=== PATIENT | male | born 1980 | race Caucasian/White ===

== ENCOUNTER 2016-11-29 09:59 | Emergency (ER) | payer OTHER ==
[2016-11-29 10:06] VITALS: BP 110/69; PULSE 75; RESP 16; TEMP 98.1; O2SAT 100
--- NOTE | 2016-11-29 10:50 | C.PDOC ---
History Of Present Illness 36 year old male presents to the ED with complaints of left foot pain that radiates to left calf and his back. Patient states that the pain started at approximately 21:00 when he was lying down in his sofa and tried to stand up when he felt a sudden pain in his left foot. Patient has not taken any medicine for his pain, but states he applied bengay to the area without relief. Patient notes he works for the [employer] and his job requires frequent walking around. Patient states he walked to the ED. Patient denies any numbness, weakness, tingling, or any falls/injuries or recent trauma. Time Seen by Provider: 11/29/16 10:14 Chief Complaint (Nursing): Lower Extremity Problem/Injury History Per: Patient History/Exam Limitations: no limitations Onset/Duration Of Symptoms: Hrs Current Symptoms Are (Timing): Still Present Recent travel outside of the [place] States: No Additional History Per: Patient - Ankle/Foot Description Of Injury: denies: Fell Alleviating Factor(s): Other (Bengay ointment) Past Medical History Reviewed: Historical Data, Nursing Documentation, Vital Signs Vital Signs: Last Vital Signs Temp 98.1 F 11/29/16 10:03 Pulse 75 11/29/16 10:03 Resp 16 11/29/16 10:03 BP 110/69 11/29/16 10:03 Pulse Ox 100 11/29/16 13:18 - Medical History PMH: No Chronic Diseases Surgical History: No Surg Hx Family History: States: Unknown Family Hx - Social History Hx Alcohol Use: No Hx Substance Use: No - Immunization History Hx Influenza Vaccination: No Review Of Systems Constitutional: Negative for: Weakness Musculoskeletal: Positive for: Back Pain (Left lower back), Leg Pain (Left calf) , Foot Pain (Left, dorsal aspect) Neurological: Negative for: Weakness, Numbness Physical Exam - Physical Exam Appears: Non-toxic, No Acute Distress Skin: Normal Color, Warm, Dry, No Ecchymosis Eye(s): bilateral: Normal Inspection Back: Normal Inspection, No Straight Leg Raising Extremity: Normal ROM (left hip, knee, ankle and digits ), No Tenderness, No Calf Tenderness, Capillary Refill (less than 2 seconds ), No Deformity, No Swelling Extremity: Bilateral: Other (popliteal pulses 2+) Pulses: Left Dorsalis Pedis: Normal, Right Dorsalis Pedis: Normal Neurological/Psych: Oriented x3, Normal Speech, Normal Cognition Gait: Steady ED Course And Treatment O2 Sat by Pulse Oximetry: 100 (Room air) Pulse Ox Interpretation: Normal Medical Decision Making Medical Decision Making: Impression: 36 y/o male with left foot pain Plan: * Toradol IM * Left foot XR * reassess and disposition Progress: Toradol IM administered. Left foot XR ordered. Left foot three views History: Pain. Comparison: None available. Findings: Mild hallux valgus deformity. Punctate radiopaque density seen within the medial soft tissues at the level of the mid left 3rd metatarsal bone. No evidence of acute displaced fracture or dislocation. Mild bony productive change at the dorsal aspect of the anterior talus near the articulation with the navicular bone. Question mild soft tissue swelling at the lateral aspect of the 5th MTP joint space. Impression: Mild hallux valgus deformity. Degenerative changes. If pain persists, consider MRI. Disposition - Disposition Disposition: HOME/ ROUTINE Disposition Time: 11:47 Condition: STABLE Prescriptions: Ibuprofen [Motrin] 600 mg PO Q6 #25 tab Instructions: Foot Contusion (ED) Forms: [facility] (Faroese), Work Excuse - Clinical Impression Clinical Impression: Foot pain - Scribe Statement The provider has reviewed the documentation as recorded by the Scribe Nadeem Varela All medical record entries made by the Scribe were at my direction and personally dictated by me. I have reviewed the chart and agree that the record accurately reflects my personal performance of the history, physical exam, medical decision making, and the department course for this patient. I have also personally directed, reviewed, and agree with the discharge instructions and disposition.
--- NOTE | 2016-11-29 14:06 | RAD ---
Left foot three views History: Pain. Comparison: None available. Findings: Mild hallux valgus deformity. Punctate radiopaque density seen within the medial soft tissues at the level of the mid left 3rd metatarsal bone. No evidence of acute displaced fracture or dislocation. Mild bony productive change at the dorsal aspect of the anterior talus near the articulation with the navicular bone. Question mild soft tissue swelling at the lateral aspect of the 5th MTP joint space. Impression: Mild hallux valgus deformity. Degenerative changes. If pain persists, consider MRI.
== END 2016-11-29 12:00 | disposition home or self-care (01) ==
LOC: C.ER 09:59
DX: M79.672 Pain in left foot (principal)
CPT/HCPCS: 73630; 96372; 99283; J1885

== ENCOUNTER 2017-09-28 19:46 | Observation (INO) | payer OTHER ==
[2017-09-28] MEDS ORDERED: Sodium Chloride 0.9% 1,000 ML IV ONE ×2 (20:23→21:17)
--- NOTE | 2017-09-28 20:23 | C.PDOC ---
History Of Present Illness 37 year old male with a history of kidney stones presents to the emergency department with complaints of left flank pain with a sudden onset a few hours ago. Patient describes the pain as sharp and stabbing, with a severity of 6/10. Time Seen by Provider: 09/28/17 20:22 Chief Complaint (Nursing): Male Genitourinary History Per: Patient History/Exam Limitations: no limitations Onset/Duration Of Symptoms: Hrs Current Symptoms Are (Timing): Still Present Severity: Moderate Pain Scale Rating Of: 6 Quality Of Discomfort: Sharp, Stabbing, "Pain" Past Medical History Reviewed: Historical Data, Nursing Documentation, Vital Signs Vital Signs: Last Vital Signs Temp 97.8 F 09/28/17 20:04 Pulse 94 H 09/28/17 20:04 Resp 20 09/28/17 20:04 BP 118/61 09/28/17 20:04 Pulse Ox 98 09/28/17 21:22 - Medical History PMH: Kidney Stones Surgical History: No Surg Hx Family History: States: No Known Family Hx - Social History Hx Alcohol Use: No Hx Substance Use: No - Immunization History Hx Influenza Vaccination: No Review Of Systems Musculoskeletal: Positive for: Back Pain (left flank) Physical Exam - Physical Exam Appears: Non-toxic, No Acute Distress Skin: Warm, Dry Head: Normacephalic Eye(s): bilateral: Normal Inspection Oral Mucosa: Moist Neck: Trachea Midline, Supple Chest: Symmetrical, No Tenderness Cardiovascular: Rhythm Regular, No Murmur Respiratory: No Rales, No Rhonchi, No Wheezing Gastrointestinal/Abdominal: Soft, No Tenderness, No Guarding, No Rebound Back: Paraspinal Tenderness (left flank) Neurological/Psych: Oriented x3 ED Course And Treatment - Laboratory Results Result Diagrams: 09/28/17 20:20 09/28/17 20:20 O2 Sat by Pulse Oximetry: 98 (RA) Pulse Ox Interpretation: Normal Progress Note: Plan: CT Abdomen and Pelvis. CMP. Lipase. CBC. Morphine IVP. Pepcid 20mg IVP. NaCl IV Fluids. Toradol 30mg IVP. Zofran 4mg IVP. Urinalysis Reevaluation Time: 00:30 Reassessment Condition: Improved Disposition Counseled Patient/Family Regarding: Studies Performed, Diagnosis, Need For Followup, Rx Given - Disposition Referrals: Justina Garcia MD [Staff Provider] - Darrel Ziegler MD [Staff Provider] - Disposition: HOME/ ROUTINE Disposition Time: 20:23 Condition: FAIR Additional Instructions: Please also follow up with a urologist Prescriptions: Ibuprofen [Motrin Tab] 800 mg PO TID PRN #15 tab PRN Reason: Pain, Moderate (4-7) Ondansetron ODT [Zofran ODT] 4 mg PO TID PRN #10 odt PRN Reason: Nausea/Vomiting Tamsulosin [Flomax] 0.4 mg PO DAILY #15 cap Instructions: Kidney Stones (DC), Renal Colic (DC), How to Strain Your Urine Forms: [employer] (Slovenian) - Clinical Impression Clinical Impression: Renal colic on left side, Kidney stone on left side - Scribe Statement The provider has reviewed the documentation as recorded by the Scribe (Caleb Canas) Provider Attestation: All medical record entries made by the Scribe were at my direction and personally dictated by me. I have reviewed the chart and agree that the record accurately reflects my personal performance of the history, physical exam, medical decision making, and the department course for this patient. I have also personally directed, reviewed, and agree with the discharge instructions and disposition.
[2017-09-28 20:24] LABS: BASO # 0.1 K/uL (0.0-0.2); BASO % 0.9 % (0.0-2.0); EOS # 0.8 K/uL (0.0-0.7); EOS % 8.6 % (0.0-4.0); HEMOGLOBIN 13.4 g/dL (12.0-18.0); LYMPH # 3.2 K/uL (1.0-4.3); LYMPH % 36.7 % (20.0-40.0); MEAN CELL VOLUME 82.8 fL (80.0-94.0); MEAN CORPUSCULAR HEMOGLOBIN 27.8 pg (27.0-31.0); MEAN CORPUSCULAR HGB CONC 33.6 g/dL (33.0-37.0); MEAN PLATELET VOLUME 9.4 fL (7.2-11.7); MONO # 0.7 K/uL (0.0-0.8); NEUT % 45.8 % (50.0-75.0); NRBC % 0.5 % (0.0-2.0); RBC 4.83 Mil/uL (4.40-5.90); RED CELL DISTRIBUTION WIDTH 13.1 % (11.5-14.5); WHITE BLOOD COUNT 8.8 K/uL (4.8-10.8)
[2017-09-28 20:40] LABS: ALB/GLOB RATIO 1.7 (1.0-2.1)
[2017-09-28 20:45] LABS: ALBUMIN 4.6 g/dL (3.5-5.0); ALT/SGPT 28 U/L (21-72); AST/SGOT 19 U/L (17-59); BLOOD UREA NITROGEN 16 mg/dL (9-20); CALCIUM 9.8 mg/dl (8.6-10.4); GFR AFRICAN-AMERICAN > 60; GFR NON-AFRICAN AMERICAN > 60
[2017-09-28 21:27] LABS: SQUAMOUS EPITHIAL < 1 /hpf (0-5); URINE BACTERIA RARE (<OCC); URINE BILIRUBIN NEGATIVE (NEGATIVE); URINE BLOOD 3+ (NEGATIVE); URINE CLARITY Clear (Clear); URINE COLOR Yellow (YELLOW); URINE GLUCOSE (UA) NORMAL (Normal); URINE LEUKOCYTE ESTERASE NEG Leu/uL (Negative); URINE PROTEIN NEGATIVE (NEGATIVE); URINE UROBILINOGEN NORMAL mg/dL (0.2-1.0)
[2017-09-28] MEDS ORDERED: Morphine 4 MG/ML VIAL ONE (21:43)
[2017-09-28] MEDS ORDERED: Sodium Chloride 0.9% 1,000 ML ONE (21:43)
[2017-09-29] MEDS ORDERED: Sodium Chloride 0.9% 500 ML IV ONE (00:37)
[2017-09-29] MEDS ORDERED: Sodium Chloride 0.9% 1,000 ML ONE (00:51)
[2017-09-29] MEDS ORDERED: Morphine 4 MG/ML VIAL ONE (00:51)
[2017-09-29] MEDS ORDERED: HYDROmorphone 1 mg/ml ISec IVP STA (02:03)
[2017-09-29] MEDS ORDERED: SODIUM CHLORIDE 0.9% IV ONE ×2 (02:22→02:30)
[2017-09-29] MEDS ORDERED: LIDOCAINE IV ONE ×2 (02:22→02:30)
[2017-09-29] MEDS ORDERED: Oxycodone/Acetaminophen 5/325 mg Tab PO PRN (07:10)
--- NOTE | 2017-09-29 07:23 | CP.PCM.HP ---
History of Present Illness - History of Present Illness History of Present Illness: 37 M with no PMH came to the hospital with c/o left flank pain started about 7 pm last night. Patient in Er found to have left ureteric distal calculus 3-4 mm with proximal hydronephosis. Patient in ER given 3 lit of fluid bolus, multiple doses of iv morphine, lidocaine IV, toradol iv, but still in pain, hence being admitted for pain control. PMH none Surgery left arm Allergies NKDA Family history not contributory Social history denies alcohol, smoking, illicit drugs Meds none Present on Admission - Present on Admission Any Indicators Present on Admission: No Review of Systems - Review of Systems All systems: reviewed and no additional remarkable complaints except (HPI) Past Patient History - Past Social History Smoking Status: Never Smoked Alcohol: None Drugs: Denies Home Situation {Lives}: With Family Domestic Violence: Negative - RENAL Hx Kidney Stones: Yes - PSYCHIATRIC Hx Substance Use: No - SURGICAL HISTORY Hx Surgeries: Yes Hx Orthopedic Surgery: Yes (LT ARM SX) - ANESTHESIA Hx Anesthesia: Yes Hx Anesthesia Reactions: No Meds Home Medications: Home Medication List Medication Instructions Recorded Confirmed Type Ibuprofen [Motrin Tab] 800 mg PO TID PRN #15 tab 09/29/17 Rx Ondansetron ODT [Zofran ODT] 4 mg PO TID PRN #10 odt 09/29/17 Rx Tamsulosin [Flomax] 0.4 mg PO DAILY #15 cap 09/29/17 Rx Allergies/Adverse Reactions: Allergies Allergy/AdvReac Type Severity Reaction Status Date / Time No Known Allergies Allergy Verified 11/29/16 10:02 Physical Exam - Additional Findings Additional findings: * HEENT SHEYLA * Neck supple * Chest Clear * CVS Regular, no gallop or rub * PA soft, mild tenderness in left flank, no cva tenderness. * Ext no edema * [employer] awake alert oriented x3, no fnd. * Skin turgor normal. Results - Vital Signs Recent Vital Signs: Last Vital Signs Temp 98.9 F 09/29/17 06:49 Pulse 80 09/29/17 06:49 Resp 16 09/29/17 06:49 BP 110/63 09/29/17 06:49 Pulse Ox 99 09/29/17 06:49 - Labs Result Diagrams: 09/28/17 20:20 08/10/18 20:20 Labs: Laboratory Results - last 24 hr 09/28/17 09/28/17 09/28/17 19:45 20:20 20:20 WBC 8.8 RBC 4.83 Hgb 13.4 Hct 39.9 MCV 82.8 MCH 27.8 MCHC 33.6 RDW 13.1 Plt Count 211 MPV 9.4 Neut % (Auto) 45.8 L Lymph % (Auto) 36.7 Saunders % (Auto) 8.0 Eos % (Auto) 8.6 H Baso % (Auto) 0.9 Neut # (Auto) 4.0 Lymph # (Auto) 3.2 Saunders # (Auto) 0.7 Eos # (Auto) 0.8 H Baso # (Auto) 0.1 Sodium 140 Potassium 4.0 Chloride 100 Carbon Dioxide 28 Anion Gap 16 BUN 16 Creatinine 0.8 Est GFR ( Amer) > 60 Est GFR (Non-Af Amer) > 60 Random Glucose 162 H Calcium 9.8 Total Bilirubin 0.4 AST 19 ALT 28 Alkaline Phosphatase 52 Total Protein 7.3 Albumin 4.6 Globulin 2.7 Albumin/Globulin Ratio 1.7 Lipase 73 Urine Color Urine Clarity Urine pH Ur Specific [place] Urine Protein Urine Glucose (UA) Urine Ketones Urine Blood Urine Nitrate Urine Bilirubin Urine Urobilinogen Ur Leukocyte Esterase Urine WBC (Auto) Urine RBC (Auto) Ur Squamous Epith Cells Urine Bacteria 09/28/17 21:15 WBC RBC Hgb Hct MCV MCH MCHC RDW Plt Count MPV Neut % (Auto) Lymph % (Auto) Saunders % (Auto) Eos % (Auto) Baso % (Auto) Neut # (Auto) Lymph # (Auto) Saunders # (Auto) Eos # (Auto) Baso # (Auto) Sodium Potassium Chloride Carbon Dioxide Anion Gap BUN Creatinine Est GFR ( Amer) Est GFR (Non-Af Amer) Random Glucose Calcium Total Bilirubin AST ALT Alkaline Phosphatase Total Protein Albumin Globulin Albumin/Globulin Ratio Lipase Urine Color Yellow Urine Clarity Clear Urine pH 6.0 Ur Specific [place] 1.019 Urine Protein Negative Urine Glucose (UA) Normal Urine Ketones Negative Urine Blood 3+ H Urine Nitrate Negative Urine Bilirubin Negative Urine Urobilinogen Normal Ur Leukocyte Esterase Neg Urine WBC (Auto) 1 Urine RBC (Auto) 34 H Ur Squamous Epith Cells < 1 Urine Bacteria Rare Assessment & Plan - Assessment and Plan (Free Text) Assessment: * Ureteric colic with distal 3x4mm left calculus, with hydro Plan: * Pain control * Gi prophylaxis * IVF * flomax * Strain urine * Counselled about avoiding dehydration * See orders for detail.
[2017-09-29] MEDS: Lactated Ringer's 1,000 ML IV SCH ×4 (07:50→21:55)
[2017-09-29] MEDS: Pantoprazole 40 mg EC Tab PO SCH (09:11)
--- NOTE | 2017-09-29 17:00 | CT ---
Date of service: 09/28/2017 PROCEDURE: CT Abdomen and Pelvis without intravenous contrast HISTORY: Left-sided flank pain in a patient with history of kidney stones COMPARISON: No prior study available for comparison TECHNIQUE: Contiguous helical/transaxial sections of the abdomen pelvis performed without oral or intravenous contrast material. Additional 2D sagittal and coronal reformats generated. Radiation dose: Total exam DLP = 249.76 mGy-cm. This CT exam was performed using one or more of the following dose reduction techniques: Automated exposure control, adjustment of the mA and/or kV according to patient size, and/or use of iterative reconstruction technique. FINDINGS: LOWER THORAX: Mild passive/dependent type atelectasis both posterior lower lung andrews. No focal consolidation or effusion. Heart size within range of normal. No significant pericardial effusion. Small hiatal hernia. LIVER: Liver is mildly enlarged measuring nearly 19 cm in CC dimension. No obvious hepatic mass or collection seen on images presented. GALLBLADDER AND BILE DUCTS: Gallbladder physiologically distended. No evidence of intraluminal gallbladder calculi. PANCREAS: Unremarkable. No gross lesion or ductal dilatation. SPLEEN: Spleen exhibits normal size and attenuation pattern without mass collection or calcification. ADRENALS: There are no adrenal lesions. . KIDNEYS AND URETERS: There is moderate left-sided hydronephrosis secondary to a distal left ureteral calculus that measures approximately 4.2 mm. VASCULATURE: No evidence of abdominal aortic or iliac artery aneurysm. BOWEL: Evaluation of the bowel is somewhat limited due to the lack of oral contrast material. Stomach is partially distended with food debris liquid and air. Visualized loops of small bowel exhibit normal contour and caliber. No evidence of acute mechanical small bowel obstruction. Moderate amount of stool seen within the cecum and ascending colon to a lesser degree remaining colon suggesting mild fecal retention/constipation. APPENDIX: Normal-appearing appendix PERITONEUM: Unremarkable. No free fluid. No free air. LYMPH NODES: Unremarkable. No enlarged lymph nodes. BLADDER: Urinary bladder is physiologically distended. No evidence of intraluminal urinary bladder calculi. REPRODUCTIVE: Unremarkable. BONES: Minor multilevel degenerative spondylosis of the lumbar spine. There is also straightening of the normal lumbar lordosis. There are no acute compression fractures nor retropulsed fragments. OTHER FINDINGS: None. IMPRESSION: There is an obstructing approximately 4.2 mm calculus distal left ureter with moderate left-sided hydronephrosis.
[2017-09-30] MEDS: Morphine 4 MG/ML VIAL IV PRN ×2 (00:03→05:51)
[2017-09-30] MEDS: Lactated Ringer's 1,000 ML IV SCH ×3 (04:18→08:27)
[2017-09-30] MEDS ORDERED: Oxycodone/Acetaminophen 5/325 mg Tab PO PRN (06:32)
[2017-09-30 07:59] LABS: BASO % 0.2 % (0.0-2.0); EOS # 0.3 K/uL (0.0-0.7); EOS % 3.7 % (0.0-4.0); LYMPH # 1.4 K/uL (1.0-4.3); LYMPH % 17.7 % (20.0-40.0); MEAN CELL VOLUME 83.1 fL (80.0-94.0); MEAN CORPUSCULAR HEMOGLOBIN 27.8 pg (27.0-31.0); MEAN CORPUSCULAR HGB CONC 33.4 g/dL (33.0-37.0); MEAN PLATELET VOLUME 10.2 fL (7.2-11.7); MONO # 0.9 K/uL (0.0-0.8); MONO % 10.8 % (0.0-10.0); NEUT # 5.5 K/uL (1.8-7.0); NEUT % 67.6 % (50.0-75.0); RBC 4.33 Mil/uL (4.40-5.90); RED CELL DISTRIBUTION WIDTH 12.9 % (11.5-14.5); WHITE BLOOD COUNT 8.1 K/uL (4.8-10.8)
[2017-09-30 08:04] LABS: INR 1.1; PROTHROMBIN TIME 12.5 SECONDS (9.7-12.2)
[2017-09-30 08:09] LABS: BLOOD UREA NITROGEN 8 mg/dL (9-20); GFR AFRICAN-AMERICAN > 60; GFR NON-AFRICAN AMERICAN > 60
[2017-09-30 08:10] LABS: ALB/GLOB RATIO 1.3 (1.0-2.1); ALBUMIN 3.4 g/dL (3.5-5.0); ALT/SGPT 25 U/L (21-72); AST/SGOT 13 U/L (17-59); CALCIUM 8.5 mg/dl (8.6-10.4)
--- NOTE | 2017-09-30 08:51 | CP.PCM.PN ---
Subjective - Date & Time of Evaluation Date of Evaluation: 09/30/17 Time of Evaluation: 08:30 - Subjective Subjective: Hospitalist Progress Note Patient was seen and examined at 8:30 AM 09/30/17 [address] 37 year old male (with no significant past medical history) was admitted on 09/29/17 for evaluation of left flank pain that had started around 7 PM on night of 09/28/17. CT Abdomen/Pelvis revealed a 4.2 mm calcululs in distal left ureter with moderate left sided hydronephrosis. He is planned with cystoscopy later today for 10 AM. Currently upon FULL ROS: Left flank pain was particularly bad this morning requiring him to request pain medication. Currently he is comfortable. Last bowel movement was normal on Sunday morning NO pain with urination and urine is clear water color NO n/v and tolerated his meals yesterday. He is hungry this morning (currently NPO for cytoscopy) NO abdominal pain NO chest pain NO cough/dypsnea/sob/cough NO other complaints upon FULL ROS Exam: General: AAOX3, NAD HEENT: NCA, EOMI, PERRLA, NO cervical/supraclavicular/submandibular lymphadenopathy, NO pharyngeal erythema/exudate, Nasal Turbinates are nonerythematous/nonedematous, Oral Mucosa is moist Cardio: NS1 and NS2, NO M/R/G Resp: CTA B/L, NO R/R/W GI: BSx4, Soft, NT, NO HSM, NO guarding/rebound tenderness Ext: Pulses are strong and equal, Capillary Refill is 2 seconds, NO edema Neuro: CN II through XII are grossly intact Assessments: 1). Left Ureter 4.2 mm calcululs in distal left ureter with moderate left sided hydronephrosis. NPO For cytoscopy with Urology Dr. Wells Patient has been straining all urine since admission and has not noticed any stone passing LR @ 200 ml/hr Morphine 0.5 mg IV Q6H PRN Moderate Morphine 1 mg IV Q6H PRN Severe Pain Zofran 4 mg IV Q6H PRN N/V NO antibiotics at this time as there is NO evidence of pyelonephritis on CT and UA does not show any evidence of infection Disposition: If cleared by Urology Dr. Ziegler after cystoscopy will discharge to home Kee Garcia D.O. Objective - Vital Signs/Intake and Output Vital Signs (last 24 hours): Temp Pulse Resp BP Pulse Ox 97.5 F L 67 20 117/67 97 09/30/17 05:54 09/30/17 05:54 09/30/17 05:54 09/30/17 05:54 09/30/17 05:54 Intake and Output: 09/30/17 09/30/17 06:59 18:59 Intake Total 1625 Balance 1625 - Medications Medications: Current Medications Lactated Ringer's (Lactated Ringer's) 1,000 mls @ 200 mls/hr IV .Q5H [facility] Last Admin: 09/30/17 08:27 Dose: Not Given Morphine Sulfate (Morphine) 3 mg IV Q4 PRN PRN Reason: Pain, severe (8-10) Last Admin: 09/30/17 05:51 Dose: 3 mg Ondansetron HCl (Zofran Inj) 4 mg IVP Q6H PRN PRN Reason: Nausea/Vomiting Oxycodone/Acetaminophen (Percocet 5/325 Mg Tab) 2 tab PO Q4H PRN PRN Reason: Pain, moderate (4-7) Stop: 10/02/17 07:11 Last Admin: 09/30/17 06:40 Dose: 2 tab Pantoprazole Sodium (Protonix Ec Tab) 40 mg PO DAILY [facility] Last Admin: 09/29/17 09:11 Dose: 40 mg - Labs Labs: 09/30/17 07:43 09/30/17 07:43 PT 12.5 SECONDS (9.7-12.2) H 09/30/17 07:43 INR 1.1 09/30/17 07:43 APTT 35 SECONDS (21-34) H 09/30/17 07:43
[2017-09-30] MEDS: Pantoprazole 40 mg EC Tab PO SCH (09:48)
[2017-09-30] MEDS ORDERED: cefTRIAXone IV 1 gm in Dextros 0 ML IVPB ONE (10:02)
[2017-09-30] MEDS ORDERED: Iohexol 240 (50 ml) ONE (10:02)
[2017-09-30] MEDS ORDERED: Clindamycin 600mg/50ml NS 0 MG/0 ML BAG IVPB ONE (10:02)
[2017-09-30] MEDS ORDERED: Propofol 10 mg/ml Inj (20 ML) ONE (10:19)
[2017-09-30] MEDS ORDERED: Ciprofloxacin 400mg/200ml D5W 400 MG/200 ML BAG IVPB ONE (10:31)
[2017-09-30] MEDS ORDERED: Lidocaine 2% Jelly (Uro-Jet) ONE (10:32)
[2017-09-30] MEDS ORDERED: Lactated Ringer's 1,000 ML IV SCH (11:30)
[2017-09-30 12:43] VITALS: TEMP 98.1
--- NOTE | 2017-09-30 12:57 | CP.PCM.DIS ---
<Abigail Rubio - Last Filed: 09/30/17 22:07> Provider - Provider Date of Admission: 09/29/17 06:11 Attending physician: MD Dr. Kee Wells Consults: Dr. Ziegler (Urology) Time Spent in preparation of Discharge (in minutes): 40 Diagnosis - Discharge Diagnosis (1) Kidney stone on left side Status: Resolved Hospital Course - Lab Results Lab Results: Most Recent Lab Values WBC 8.1 K/uL (4.8-10.8) 09/30/17 07:43 RBC 4.33 Mil/uL (4.40-5.90) L 09/30/17 07:43 Hgb 12.0 g/dL (12.0-18.0) 09/30/17 07:43 Hct 35.9 % (35.0-51.0) 09/30/17 07:43 MCV 83.1 fL (80.0-94.0) 09/30/17 07:43 MCH 27.8 pg (27.0-31.0) 09/30/17 07:43 MCHC 33.4 g/dL (33.0-37.0) 09/30/17 07:43 RDW 12.9 % (11.5-14.5) 09/30/17 07:43 Plt Count 158 K/uL (130-400) 09/30/17 07:43 MPV 10.2 fL (7.2-11.7) 09/30/17 07:43 Neut % (Auto) 67.6 % (50.0-75.0) 09/30/17 07:43 Lymph % (Auto) 17.7 % (20.0-40.0) L 09/30/17 07:43 [place] % (Auto) 10.8 % (0.0-10.0) H 09/30/17 07:43 Eos % (Auto) 3.7 % (0.0-4.0) 09/30/17 07:43 Baso % (Auto) 0.2 % (0.0-2.0) 09/30/17 07:43 Neut # (Auto) 5.5 K/uL (1.8-7.0) 09/30/17 07:43 Lymph # (Auto) 1.4 K/uL (1.0-4.3) 09/30/17 07:43 [place] # (Auto) 0.9 K/uL (0.0-0.8) H 09/30/17 07:43 Eos # (Auto) 0.3 K/uL (0.0-0.7) 09/30/17 07:43 Baso # (Auto) 0.0 K/uL (0.0-0.2) 09/30/17 07:43 PT 12.5 SECONDS (9.7-12.2) H 09/30/17 07:43 INR 1.1 09/30/17 07:43 APTT 35 SECONDS (21-34) H 09/30/17 07:43 Sodium 141 mmol/L (132-148) 09/30/17 07:43 Potassium 4.2 mmol/L (3.6-5.2) 09/30/17 07:43 Chloride 103 mmol/L (98-107) 09/30/17 07:43 Carbon Dioxide 28 mmol/L (22-30) 09/30/17 07:43 Anion Gap 15 (10-20) 09/30/17 07:43 BUN 8 mg/dL (9-20) L 09/30/17 07:43 Creatinine 1.1 mg/dL (0.8-1.5) 09/30/17 07:43 Est GFR ( Amer) > 60 09/30/17 07:43 Est GFR (Non-Af Amer) > 60 09/30/17 07:43 Random Glucose 104 mg/dL (75-110) 09/30/17 07:43 Calcium 8.5 mg/dl (8.6-10.4) L 09/30/17 07:43 Phosphorus 2.9 mg/dL (2.5-4.5) 09/30/17 07:43 Magnesium 1.6 mg/dL (1.6-2.3) 09/30/17 07:43 Total Bilirubin 0.6 mg/dL (0.2-1.3) 09/30/17 07:43 AST 13 U/L (17-59) L D 09/30/17 07:43 ALT 25 U/L (21-72) 09/30/17 07:43 Alkaline Phosphatase 44 U/L (38-126) 09/30/17 07:43 Total Protein 5.9 g/dL (6.3-8.3) L 09/30/17 07:43 Albumin 3.4 g/dL (3.5-5.0) L D 09/30/17 07:43 Globulin 2.5 gm/dL (2.2-3.9) 09/30/17 07:43 Albumin/Globulin Ratio 1.3 (1.0-2.1) 09/30/17 07:43 Lipase 73 U/L (23-300) 09/28/17 19:45 Urine Color Yellow (YELLOW) 09/28/17 21:15 Urine Clarity Clear (Clear) 09/28/17 21:15 Urine pH 6.0 (5.0-8.0) 09/28/17 21:15 Ur Specific [place] 1.019 (1.003-1.030) 09/28/17 21:15 Urine Protein Negative mg/dL (NEGATIVE) 09/28/17 21:15 Urine Glucose (UA) Normal mg/dL (Normal) 09/28/17 21:15 Urine Ketones Negative mg/dL (NEGATIVE) 09/28/17 21:15 Urine Blood 3+ (NEGATIVE) H 09/28/17 21:15 Urine Nitrate Negative (NEGATIVE) 09/28/17 21:15 Urine Bilirubin Negative (NEGATIVE) 09/28/17 21:15 Urine Urobilinogen Normal mg/dL (0.2-1.0) 09/28/17 21:15 Ur Leukocyte Esterase Neg Jessica/uL (Negative) 09/28/17 21:15 Urine WBC (Auto) 1 /hpf (0-5) 09/28/17 21:15 Urine RBC (Auto) 34 /hpf (0-3) H 09/28/17 21:15 Ur Squamous Epith Cells < 1 /hpf (0-5) 09/28/17 21:15 Urine Bacteria Rare (<OCC) 09/28/17 21:15 - Hospital Course Hospital Course: On admission: 37 M with no PMH came to the hospital with c/o left flank pain started about 7 pm last night. Patient in Er found to have left ureteric distal calculus 3-4 mm with proximal hydronephosis. Patient in ER given 3 lit of fluid bolus, multiple doses of iv morphine, lidocaine IV, toradol iv, but still in pain, hence being admitted for pain control. Hospital course: Patient admitted for nephrolithiasis. Patient placed on fluids and administered pain medication for relief. CT of the abdomen and pelvis obtained with findings of Imaging reports obstructing ~ 4.2 mm calculus in distal left ureter with moderate left-sided hydronephrosis. Consult made to Urology for management. Cystoscopy was performed for removal of stone. Per Urologist, stone was removed as a whole piece without need for stent. Patient observed and monitored closely afterwards. Patient admitted to feeling lightheaded following the procedure after having been NPO from the night prior. Patient encouraged to eat food. Fluid bolus given. Patient responded. Patient noted to be voidng appropriately as well. Vitals were checked and found to be stable. Patient deemed medically stable for discharge home with recommendations for follow up. This is a brief summary of events. For a complete course, refer to the medical record. Kindly refer to discharge instructions below. Patient is medically stable for discharge home. Patient to follow up with primary medical doctor within one week. Please follow up with Urologist, Dr. Ziegler within one week for follow up care. If patient does not have a primary medical doctor, he can follow up with the [facility]. He can call [phone] to make an appointment. Patient will be provided with the following prescriptions: Tylenol # 3 to take every 6 hours as needed as well as flomax 0.4 mg, take one tablet by mouth daily. If symptoms return, go to the emergency room. Instructions explained to patient who is aware. Discharge Exam - Head Exam Head Exam: ATRAUMATIC, NORMAL INSPECTION - Eye Exam Eye Exam: EOMI, Normal appearance, PERRL Pupil Exam: NORMAL ACCOMODATION - ENT Exam ENT Exam: Mucous Membranes Moist - Neck Exam Neck exam: Full Rom - Respiratory Exam Respiratory Exam: NORMAL BREATHING PATTERN. absent: Wheezes - Cardiovascular Exam Cardiovascular Exam: +S1, +S2 - GI/Abdominal Exam GI & Abdominal Exam: Soft. absent: Distended, Guarding, Tenderness - Extremities Exam Extremities exam: full ROM, normal capillary refill, pedal pulses present Additional comments: no edema appreciated of extremities - Back Exam Back exam: FULL ROM - Neurological Exam Neurological exam: Alert, CN II-XII Intact, Oriented x3 - Psychiatric Exam Psychiatric exam: Normal Affect, Normal Mood - Skin Skin Exam: Dry, Normal Color Discharge Plan - Discharge Medications Prescriptions: Acetaminophen with Codeine [Tylenol with Codeine #3 Tablet] 1 each PO Q6 PRN # 20 tablet PRN Reason: Pain, Mild (1-3) Tamsulosin [Flomax] 0.4 mg PO DAILY #15 cap - Follow Up Plan Condition: FAIR Disposition: HOME/ ROUTINE Instructions: Kidney Stones (DC), Renal Colic (DC), Ibuprofen, Ondansetron, Tamsulosin, How to Strain Your Urine Additional Instructions: Patient is medically stable for discharge home. Patient to follow up with primary medical doctor within one week. Please follow up with Urologist, Dr. Ziegler within one week for follow up care. If patient does not have a primary medical doctor, he can follow up with the [facility]. He can call [phone] to make an appointment. Patient will be provided with the following prescriptions: Tylenol # 3 to take every 6 hours as needed as well as flomax 0.4 mg, take one tablet by mouth daily. If symptoms return, go to the emergency room. Instructions explained to patient who is aware. Referrals: [facility] [Provider Group] Darrel Ziegler MD [Staff Provider] - <Kee Garcia - Last Filed: 09/30/17 23:41> Provider - Provider Date of Admission: 09/29/17 06:11 Attending physician: Yousuf Hobbs MD Hospital Course - Lab Results Lab Results: Most Recent Lab Values WBC 8.1 K/uL (4.8-10.8) 09/30/17 07:43 RBC 4.33 Mil/uL (4.40-5.90) L 09/30/17 07:43 Hgb 12.0 g/dL (12.0-18.0) 09/30/17 07:43 Hct 35.9 % (35.0-51.0) 09/30/17 07:43 MCV 83.1 fL (80.0-94.0) 09/30/17 07:43 MCH 27.8 pg (27.0-31.0) 09/30/17 07:43 MCHC 33.4 g/dL (33.0-37.0) 09/30/17 07:43 RDW 12.9 % (11.5-14.5) 09/30/17 07:43 Plt Count 158 K/uL (130-400) 09/30/17 07:43 MPV 10.2 fL (7.2-11.7) 09/30/17 07:43 Neut % (Auto) 67.6 % (50.0-75.0) 09/30/17 07:43 Lymph % (Auto) 17.7 % (20.0-40.0) L 09/30/17 07:43 [place] % (Auto) 10.8 % (0.0-10.0) H 09/30/17 07:43 Eos % (Auto) 3.7 % (0.0-4.0) 09/30/17 07:43 Baso % (Auto) 0.2 % (0.0-2.0) 09/30/17 07:43 Neut # (Auto) 5.5 K/uL (1.8-7.0) 09/30/17 07:43 Lymph # (Auto) 1.4 K/uL (1.0-4.3) 09/30/17 07:43 [place] # (Auto) 0.9 K/uL (0.0-0.8) H 09/30/17 07:43 Eos # (Auto) 0.3 K/uL (0.0-0.7) 09/30/17 07:43 Baso # (Auto) 0.0 K/uL (0.0-0.2) 09/30/17 07:43 PT 12.5 SECONDS (9.7-12.2) H 09/30/17 07:43 INR 1.1 09/30/17 07:43 APTT 35 SECONDS (21-34) H 09/30/17 07:43 Sodium 141 mmol/L (132-148) 09/30/17 07:43 Potassium 4.2 mmol/L (3.6-5.2) 09/30/17 07:43 Chloride 103 mmol/L (98-107) 09/30/17 07:43 Carbon Dioxide 28 mmol/L (22-30) 09/30/17 07:43 Anion Gap 15 (10-20) 09/30/17 07:43 BUN 8 mg/dL (9-20) L 09/30/17 07:43 Creatinine 1.1 mg/dL (0.8-1.5) 09/30/17 07:43 Est GFR ( Amer) > 60 09/30/17 07:43 Est GFR (Non-Af Amer) > 60 09/30/17 07:43 Random Glucose 104 mg/dL (75-110) 09/30/17 07:43 Calcium 8.5 mg/dl (8.6-10.4) L 09/30/17 07:43 Phosphorus 2.9 mg/dL (2.5-4.5) 09/30/17 07:43 Magnesium 1.6 mg/dL (1.6-2.3) 09/30/17 07:43 Total Bilirubin 0.6 mg/dL (0.2-1.3) 09/30/17 07:43 AST 13 U/L (17-59) L D 09/30/17 07:43 ALT 25 U/L (21-72) 09/30/17 07:43 Alkaline Phosphatase 44 U/L (38-126) 09/30/17 07:43 Total Protein 5.9 g/dL (6.3-8.3) L 09/30/17 07:43 Albumin 3.4 g/dL (3.5-5.0) L D 09/30/17 07:43 Globulin 2.5 gm/dL (2.2-3.9) 09/30/17 07:43 Albumin/Globulin Ratio 1.3 (1.0-2.1) 09/30/17 07:43 Lipase 73 U/L (23-300) 09/28/17 19:45 Urine Color Yellow (YELLOW) 09/28/17 21:15 Urine Clarity Clear (Clear) 09/28/17 21:15 Urine pH 6.0 (5.0-8.0) 09/28/17 21:15 Ur Specific [place] 1.019 (1.003-1.030) 09/28/17 21:15 Urine Protein Negative mg/dL (NEGATIVE) 09/28/17 21:15 Urine Glucose (UA) Normal mg/dL (Normal) 09/28/17 21:15 Urine Ketones Negative mg/dL (NEGATIVE) 09/28/17 21:15 Urine Blood 3+ (NEGATIVE) H 09/28/17 21:15 Urine Nitrate Negative (NEGATIVE) 09/28/17 21:15 Urine Bilirubin Negative (NEGATIVE) 09/28/17 21:15 Urine Urobilinogen Normal mg/dL (0.2-1.0) 09/28/17 21:15 Ur Leukocyte Esterase Neg Jessica/uL (Negative) 09/28/17 21:15 Urine WBC (Auto) 1 /hpf (0-5) 09/28/17 21:15 Urine RBC (Auto) 34 /hpf (0-3) H 09/28/17 21:15 Ur Squamous Epith Cells < 1 /hpf (0-5) 09/28/17 21:15 Urine Bacteria Rare (<OCC) 09/28/17 21:15 Attending/Attestation - Attestation I have personally seen and examined this patient.: Yes I have fully participated in the care of the patient.: Yes I have reviewed all pertinent clinical information, including history, physical exam and plan: Yes
[2017-09-30] MEDS ORDERED: Sodium Chloride 0.9% 500 ML IV SCH (15:00)
[2017-09-30 16:36] VITALS: BP 115/68; PULSE 68; RESP 20; O2SAT 100
--- NOTE | 2017-09-30 17:54 | RAD ---
Date of service: 09/30/2017 HISTORY: LT. URETER CALCULI COMPARISON: Comparison is made to the previous CT of the abdomen and pelvis dated 09/28/2017 FINDINGS: BOWEL: Normal. No obstruction. No free air. BONES: Normal. OTHER FINDINGS: Small approximately 4 millimeter calculus at the left aspect of the pelvis noted likely represent distal left ureter stone IMPRESSION: As above.
--- NOTE | 2017-10-08 08:19 | OP ---
Copied To: Darrel Ziegler MD Attending MD: Darrel Ziegler MD PROCEDURE DATE: 09/30/2017 INDICATION: The patient was admitted with sepsis and abscess of the perineum. DESCRIPTION OF PROCEDURE: The patient was brought to the OR, prepped and draped in the usual manner with general anesthesia given, was placed in lithotomy position. An incision in the perineum was made front to back. There was of pus and necrotic tissue surrounding the area as described. All the necrotic tissue was cut away. The area in the perineum that appeared to be necrotic was also dissected and irrigated using a pulse newsstand vendor. After this was accomplished, the wound was packed using iodoform gauze. The patient will be followed closely on days to come. Darrel Ziegler MD
--- NOTE | 2017-10-10 07:29 | OP ---
Copied To: Darrel Ziegler MD Attending MD: Darrel Ziegler MD PROCEDURE DATE: 09/30/2017 DESCRIPTION OF PROCEDURE: The patient was brought to the OR with obstructing left ureteral calculus. The patient was prepped and draped in the usual manner after general anesthesia given. On cystoscopy, approximately 4 or 5 mm stone was protruding from the left orifice. A basket was then inserted, passed the calculus and then migrated into the distal ureter. The basket was opened and engaged the calculus. The calculus were down to the orifice and protruding approximately senior care through. With mild traction over a period of two to three minutes, the calculus came out spontaneously inside the basket. There was no bleeding. The patient tolerated the procedure well and left the OR in good condition. Darrel Ziegler MD
== END 2017-09-30 18:02 | disposition home or self-care (01) ==
LOC: C.ER 19:46 → C.6T 09-29 06:11
PROVIDERS: ADMIT Internal Medicine; ATTEND Internal Medicine
DX: N13.2 Hydronephrosis with renal and ureteral calculous obstruction (principal)
CPT/HCPCS: 36415; 52352; 74018; 74176; 80053; 81001; 82365; 83690; 83735; 84100; 85025; 85610; 85730; 88300; 96361; 96374; 96375; 96376; 99285; C1769; G0378; J0744; J1885; J2001; J2270; J2405; J7030; J7040; J7120